=== PATIENT | female | born 1965 | race Caucasian/White ===

== ENCOUNTER → 2023-12-14 | Outpatient (CLI) | payer MEDICARE | END | disposition home or self-care (01) | LOC: RESCLI 07:47 | PROVIDERS: ATTEND Internal Medicine | DX: M31.30 Wegener's granulomatosis without renal involvement (principal); M81.8 Other osteoporosis without current pathological fracture; I27.82 Chronic pulmonary embolism; G62.9 Polyneuropathy, unspecified; Z79.899 Other long term (current) drug therapy; T38.0X5A Adverse effect of glucocorticoids and synthetic analogues, initial encounter; X58.XXXA Exposure to other specified factors, initial encounter ==